=== PATIENT | male | born 1945 | race Caucasian/White ===

== ENCOUNTER → 2023-11-14 13:05 | Outpatient (REF) | payer MEDICARE, BC, SELFPAY | LOC: WOUND 13:05 | PROVIDERS: ATTENDING PHYSICIAN Surgery; FAMILY PHYSICIAN Internal Medicine | DX: L89.102 Pressure ulcer of unspecified part of back, stage 2 (principal); I69.30 Unspecified sequelae of cerebral infarction; G89.0 Central pain syndrome; I48.19 Other persistent atrial fibrillation; Z73.6 Limitation of activities due to disability | CPT/HCPCS: 99214 ==

== ENCOUNTER → 2023-11-20 13:48 | Outpatient (REF) | payer MEDICARE, BC, SELFPAY | LOC: WOUND 13:48 | PROVIDERS: ATTENDING PHYSICIAN Surgery; FAMILY PHYSICIAN Internal Medicine | DX: L89.102 Pressure ulcer of unspecified part of back, stage 2 (principal); I69.30 Unspecified sequelae of cerebral infarction; G89.0 Central pain syndrome; I48.19 Other persistent atrial fibrillation; Z73.6 Limitation of activities due to disability | CPT/HCPCS: 99213 ==